=== PATIENT | male | born 1995 | race Caucasian/White ===

== ENCOUNTER 2016-09-23 18:11 | Emergency (ER) | payer OTHER ==
--- NOTE | 2016-09-23 18:37 | EDM.PDOC ---
ED HPI Trauma - General Chief Complaint: Lower Extremity Injury/Pain Stated Complaint: PT HURT RT LEG Time Seen by Provider: 09/23/16 18:15 Source: Reports: Patient History Limitations: Reports: No limitations - History of Present Illness INITIAL COMMENTS - FREE TEXT/NARRATIVE: History of present illness: [21-year-old male coming in complaining of right-sided knee tib-fib and ankle pain. 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 Past medical history: As per history of present illness and as reviewed below otherwise noncontributory. Surgical history: As per history of present illness and as reviewed below otherwise noncontributory. Social history: No reported history of drug or alcohol abuse. Family history: As per history of present illness and as reviewed below otherwise noncontributory. Physical exam: HEENT: Atraumatic, normocephalic, pupils reactive, negative for conjunctival pallor or scleral icterus, mucous membranes moist, throat clear, neck supple, nontender, trachea midline. Lungs: Clear to auscultation, breath sounds equal bilaterally, chest nontender. Heart: S1S2, regular, negative for clicks, rubs, or JVD. Abdomen: Soft, nondistended, nontender. Negative for masses or hepatosplenomegaly. Negative for costovertebral tenderness. Pelvis: Stable nontender. Genitourinary: Deferred. Rectal: Deferred. Extremities: Atraumatic, negative for cords or calf pain. Neurovascular unremarkable. Neuro: Awake, alert, oriented. Cranial nerves II through XII unremarkable. Cerebellum unremarkable. Motor and sensory unremarkable throughout. Exam nonfocal. All x-rays are negative for fracture and/or acute bony abnormalities. Compartment syndrome was discussed with patient is wearing as how to check his pulses in his capillary refill. Patient verbalizes understanding and ability to evaluate the [facility] symptoms of decreased circulation Diagnostics: [X-ray right knee tib-fib and ankle] Therapeutics: [] Impression: [Leg pain ] Plan: [Followup with primary care OTC pain meds Definitive disposition and diagnosis as appropriate pending reevaluation and review of above. Allergies/ADRs: Allergies Penicillins Allergy (Verified 09/09/16 19:28) Hives Home Medications: Ambulatory Orders . [No Known Home Meds] 02/09/16 [Confirmed 02/09/16] Past Medical History - Past Health History Medical/Surgical History: Denies Medical/Surgical History HEENT History: Reports: None Cardiovascular History: Reports: None Respiratory History: Reports: None Gastrointestinal History: Reports: None Genitourinary History: Reports: None Musculoskeletal History: Reports: None Neurological History: Reports: Concussion, Other (see below) Other Neuro History: multiple Psychiatric History: Reports: None Endocrine/Metabolic History: Reports: None Hematologic History: Reports: Blood transfusion(s) Other Hematologic History: as a baby, 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 Immunologic History: Reports: None Oncologic (Cancer) History: Reports: None Dermatologic History: Reports: None - Infectious Disease History Infectious Disease History: Reports: None - Past Surgical History Head Surgeries/Procedures: Reports: None HEENT Surgical History: Reports: Tonsillectomy Cardiovascular Surgical History: Reports: None Respiratory Surgical History: Reports: None GI Surgical History: Reports: None Male Surgical History: Reports: None Endocrine Surgical History: Reports: None Neurological Surgical History: Reports: None Oncologic Surgical History: Reports: None Dermatological Surgical History: Reports: None Social & Family History - Tobacco Use Smoking Status *Q: Never Smoker Second Hand Smoke Exposure: No - Caffeine Use Caffeine Use: Reports: Soda - Recreational Drug Use Recreational Drug Use: No Drug Use in Last 12 Months: No Review of Systems - Review of Systems Review Of Systems: See Below (See history of present illness) Trauma Exam - Physical Exam Exam: See Below (History of present illness) Course - Vital Signs Last Recorded V/S: Last Vital Signs Temp 37.1 C 09/23/16 18:19 Pulse 93 09/23/16 18:19 Resp 18 09/23/16 18:19 BP 143/77 H 09/23/16 18:19 Pulse Ox 97 09/23/16 18:19 - Orders/Labs/Meds Orders: Active Orders 24 hr Category Date Time Status Ankle Min 3V Rt [CR] Stat Exams 09/23/16 18:25 Taken Knee 3V Rt [CR] Stat Exams 09/23/16 18:25 Taken Tibia Fibula Rt [CR] Stat Exams 09/23/16 18:25 Taken Departure - Departure Time of Disposition: 20:00 Disposition: Home, Self-Care 01 Condition: good Clinical Impression: Blunt force injury Forms: ED Department Discharge Additional Instructions: The following information is given to patients seen in the emergency department who are being discharged to home. This information is to outline your options for follow-up care. We provide all patients seen in our emergency department with a follow-up referral. The need for follow-up, as well as the timing and circumstances, are variable depending upon the specifics of your emergency department visit. If you don't have a primary care physician on staff, we will provide you with a referral. We always advise you to contact your personal physician following an emergency department visit to inform them of the circumstance of the visit and for follow-up with them and/or the need for any referrals to a consulting specialist. The emergency department will also refer you to a specialist when appropriate. This referral assures that you have the opportunity for follow-up care with a specialist. All of these measure are taken in an effort to provide you with optimal care, which includes your follow-up. Under all circumstances we always encourage you to contact your private physician who remains a resource for coordinating your care. When calling for follow-up care, please make the office aware that this follow-up is from your recent emergency room visit. If for any reason you are refused follow-up, please contact the [facility] Emergency Department at and asked to speak to the emergency department charge nurse. Take OTC pain medicine as Evaluate your pulses and refill in your toenails as discussed Followup with your PCP 1-2 days Return to ED as needed as discussed - My Orders Last 24 Hours: My Active Orders 09/23/16 18:25 Ankle Min 3V Rt [CR] Stat Knee 3V Rt [CR] Stat Tibia Fibula Rt [CR] Stat - Assessment/Plan Last 24 Hours: My Active Orders 09/23/16 18:25 Ankle Min 3V Rt [CR] Stat Knee 3V Rt [CR] Stat Tibia Fibula Rt [CR] Stat
[2016-09-23 20:10] VITALS: BP 131/73
--- NOTE | 2016-09-24 11:02 | CR ---
EXAM DATE: 09/23/16 PATIENT'S AGE: 21 Patient: PARESH BUSTOS Facility: [place], [place] Site . Site : 1995 Study: XRay Extremity tib/fib [id number]/24/2017 7:00:43 PM Ordering Physician: Doctor Joy Final Report: HISTORY: Injury. FINDINGS: Two views of the right tibia and fibula demonstrate maintenance of the medial, lateral and patellofemoral joint spaces in the knee. There is normal alignment at the ankle. The tibia and fibular diaphyses appear intact. IMPRESSION: No fracture identified. Dictated by Leonor Patel MD @ 09/23/2016 7:07:12 PM Dictated by: Leonor Patel MD @ 09/23/2016 19:07:16 (Electronic Signature) Report Signed by Proxy and Original Signed Document filed in the Medical Record. [facility]
--- NOTE | 2016-09-24 11:03 | CR ---
EXAM DATE: 09/23/16 PATIENT'S AGE: 21 Patient: PARESH BUSTOS Facility: [place], [place] Site . Site : 1995 Study: XRay Knee [id number]/24/2017 7:01:07 PM Ordering Physician: Doctor Joy Final Report: Indication: Injury Technique: Three views right knee Comparison: Findings: Bones: Alignment is normal. No fractures or bone lesions. Joint spaces: Unremarkable. Soft tissues: Unremarkable. Impression: Negative. Dictated by Suly Oro MD @ Sep 23 2016 7:07PM (Electronic Signature) Report Signed by Proxy and Original Signed Document filed in the Medical Record. [facility]
--- NOTE | 2016-09-24 11:04 | CR ---
EXAM DATE: 09/23/16 PATIENT'S AGE: 21 Patient: PARESH BUSTOS Facility: [place], [place] Site . Site : 1995 Study: XRay Extremity ankle [id number]/24/2017 7:01:29 PM Ordering Physician: Doctor Joy Final Report: Indication: Injury Technique: Three views right ankle Comparison: None Findings: Bones: Alignment is normal. No fractures or bone lesions. Joint spaces: Unremarkable. Soft tissues: Unremarkable. Impression: Negative. Dictated by Suly Oro MD @ Sep 23 2016 7:08PM (Electronic Signature) Report Signed by Proxy and Original Signed Document filed in the Medical Record. [facility]
== END 2016-09-23 20:08 | disposition home or self-care (01) ==
LOC: MW.ED 18:11
DX: S89.91XA Unspecified injury of right lower leg, initial encounter (principal); S99.911A Unspecified injury of right ankle, initial encounter; Z88.0 Allergy status to penicillin; Z98.890 Other specified postprocedural states; V09.9XXA Pedestrian injured in unspecified transport accident, initial encounter
CPT/HCPCS: 73562-26-RT; 73562-RT; 73590-26-RT; 73590-RT; 73610-26-RT; 73610-RT; 99282; 99283

== ENCOUNTER 2021-10-27 21:21 | Emergency (ER) | payer BC, OTHER ==
[2021-10-27] MEDS ORDERED: Sodium Chloride 0.9% 2.5 ML Syringe FLUSH PRN (21:34)
[2021-10-27] MEDS ORDERED: Sodium Chloride 0.9% 10 ML Syringe FLUSH PRN (21:34)
[2021-10-27] MEDS ORDERED: Sodium Chloride 0.9% 1,000 ML IV ONE (21:34)
[2021-10-27] MEDS ORDERED: Pantoprazole 40 MG in Sodium Chloride 0.9% 10 ML IVPUSH ONE (21:35)
[2021-10-27 22:12] LABS: BLOOD UREA NITROGEN,BUN 17 mg/dL (7.0-18.0); CARBON DIOXIDE,CO2 24.9 mmol/L (21.0-32.0); CHLORIDE,CL 104 mmol/L (98-107); GLUCOSE RANDOM 109 mg/dL (74-106); LIPASE 70 U/L (73-393); POTASSIUM,K 3.8 mmol/L (3.5-5.1); SODIUM,NA 141 mmol/L (136-148)
[2021-10-27] MEDS ORDERED: Iopamidol 755 MG/ML 500 ML Multipack Bottle IVPUSH ONE (23:20)
[2021-10-27] MEDS: Alum Hydro/Mag Hydro/Simeth XS 15 ML, Lidocaine 2% 5 ML PO ONE ×4 (23:51→23:56)
[2021-10-28 00:41] VITALS: BP 141/71; PULSE 74
== END 2021-10-28 00:41 | disposition home or self-care (01) ==
LOC: MW.ED 21:21
DX: K29.70 Gastritis, unspecified, without bleeding (principal); Z88.0 Allergy status to penicillin; Z79.01 Long term (current) use of anticoagulants
CPT/HCPCS: 36415; 74177; 80053; 81003; 83690; 85025; 96361; 96374; 99284; C9113; J3490; J7030; Q9967; A9270-GY

== ENCOUNTER 2022-04-14 15:59 | Emergency (ER) | payer BC ==
[2022-04-14 16:14] VITALS: BP 129/85; PULSE 78
[2022-04-14] MEDS ORDERED: Sodium Chloride 0.9% 1,000 ML IV SCH (16:45)
[2022-04-14 17:23] LABS: CARBON DIOXIDE,CO2 26.5 mmol/L (21.0-32.0); POTASSIUM,K 4.2 mmol/L (3.5-5.1)
[2022-04-14] MEDS ORDERED: Sodium Chloride 0.9% 1,000 ML IV ONE (17:24)
[2022-04-14] MEDS ORDERED: Iopamidol 755 Mg/ML 100 ML Bottle IVPUSH ONE (19:22)
== END 2022-04-14 19:15 | disposition home or self-care (01) ==
LOC: MW.ED 15:59
DX: S80.12XA Contusion of left lower leg, initial encounter (principal); I82.4Y2 Acute embolism and thrombosis of unspecified deep veins of left proximal lower extremity; R09.1 Pleurisy; Z88.0 Allergy status to penicillin; Z79.01 Long term (current) use of anticoagulants; W20.8XXA Other cause of strike by thrown, projected or falling object, initial encounter
CPT/HCPCS: 36415; 71275; 80048; 85025; 85730; 96360; 96361; 99284; J7030; Q9967

== ENCOUNTER 2022-07-15 12:50 | Emergency (ER) | payer OTHER, BC ==
[2022-07-15 16:28] VITALS: BP 121/76; PULSE 70
== END 2022-07-15 16:10 | disposition home or self-care (01) ==
LOC: MW.ED 12:50
DX: S87.81XA Crushing injury of right lower leg, initial encounter (principal); Z88.0 Allergy status to penicillin; V86.52XA Driver of snowmobile injured in nontraffic accident, initial encounter; Y92.410 Unspecified street and highway as the place of occurrence of the external cause
CPT/HCPCS: 73590-26-RT; 73590-RT; 93926; 93926-26; 93971-26-RT; 93971-RT; 99284